=== PATIENT | female | born 1995 | race Caucasian/White ===

== ENCOUNTER 2024-12-30 07:59 | Emergency (ER) | payer BC, SELFPAY ==
[2024-12-30 08:12] VITALS: BP 132/67; PULSE 78; RESP 16; TEMP 37; O2SAT 98; BMI 31.6
--- OUTSIDE RECORDS SUMMARY | 2024-12-30 08:38 | XMS_ITS | Encounter Summary ---
Author Organization [facility] Address [address] [facility] [address] [place] [address] Phone Care Team Providers Care Reading Coach Name Role Phone Nataliya Cano MD Unavailable [phone] Jany Valdez MD Primary Care Provid er Lorene Gomes MD Primary Care Provider [phone] Lorene Gomes MD Unavailable [phone] Lorene Gomes MD Unavailable [phone] Reason for Visit * Reason Onset Date Comments referral 03/11/2022 Encounter Details Date Type Department Care Team (Late st Contact Info) Description 03/11/2022 Telephone [facility] Medicine [address] [place] [address] Jany Valdez MD [address] [address] [email or web address] referral Social History Tobacco Use Types Packs/Day Years Used Date Smoking Tobacco: Never Smokeless Tobacco: Never Alcohol Use Standard Drinks/Week Comments Yes 2 (1 standard drink = 0.6 oz pur e alcohol) beer or wine twice a week. Comments Unknown Sex and Gender Information Value Date Recorded Sex Assigned at Female 06/08/2019 9:17 PM EST Legal Sex Female 11:41 AM EDT Gender Identity Genderqueer/Queer 06/07/2023 10: 13 AM EST Sexual Orientation Pansexual 05/20/2020 2: 04 PM EST Occupation Industry Job Start Date Job End Date student Not on file Not on file Not on file [email or web address] Not on file Not on file Not on file documented as of this encounter Progress Notes * Jany Valdez MD - 03/12/2022 6:09 PM EDT Cannot sign referral for problem I have not evaluated patient I have not evaluated * Brie Mehta MA - 03/12/2022 2:33 PM EDT Pended. * Leana Mar - 03/11/2022 3:47 PM EDT Referral Request 1. Name of the office where the patient has been seen/requests to be seen: [facility] 2. Reason for referral/specialist appointment and the diagnosis code: lower back pain 2A. Have you seen this provider before for this same problem? YES/NO: no 2B. If this is a new problem, is your PCP aware of your symptoms? YES/NO: no 3. Date of appointment(s):02/22/22 4. Name of specialist provider: Linda Mosquera 5. NPI number to enter for referral authorization (enter n/a if not available): [id number] 6. Number of visits requested for referral: 20 7. Fax number of specialist office to send referral authorization: [phone] documented in this encounter Plan of Treatment Upcoming Encounters Date Type Department Care Team (Late st Contact Info) Description 01/11/2025 3:10 PM EDT Office Visit [facility] [address] [place] [address] [place] [phone] Shelby Ward MD [address] [facility], [address] [place] [address] 04/23/2026 1:40 PM EST Office Visit [facility] [address] [place] [address] Lorene Gomes MD [address] [facility] [address] [place] [address] [email or web address] documented as of this encounter Visit Diagnoses Not on filedocumented in this encounter Additional Health Concerns Infection Onset Date Last Indicated Resolved Time COVID-19 01/03/2023 01/03/2023 01/24/2023 1:23 AM EDT CoV-Risk Comment:Per Ambulatory Triage Form 01/05/2023 01/05/202301/05 11:40 AM EDT Assessment Noted Time PHQ-2 Depression Total Score: 0 09/06/19 10:30 AM EDT documented as of this encounter Care Teams Reading Coach Relationship Specialty Start Date End Date Jany Valdez MD 22 [facility] [address] [place] [address] [email or web address] PCP - General Family Medicine 10/23/21 08/03/22 Lorene Gomes MD [address] [place] [address] [address] [place] [address] PCP - General Family Medicine 08/04/22 Nataliya Cano MD [address] [facility] [place] [address] Insurance Assigned Provider Family Medicine 03/03/19 Lorene Gomes MD [address] [address] Insurance Assigned Provider 09/13/22 Lorene Gomes MD [address] [address] Insurance Assigned Provider 08/15/23 documented as of this encounter Additional Source Comments The information contained in this document represents components of the legal health record. It is not the complete legal health record.[facility]
--- NOTE | 2024-12-30 09:14 | ED_ITS ---
HPI - Wound/Laceration General Chief Complaint: Wound/Laceration Stated Complaint: R Thumb Lac Time Seen by Provider: 12/30/24 08:09 Source: patient, RN notes reviewed and old records reviewed Mode of arrival: ambulatory Limitations: no limitations History of Present Illness ED Provider: Ashley Parish PA-C HPI narrative: Patient reports to the emergency department today for evaluation of laceration to the right thumb. There using a mandoline last night to cut food and accidentally sliced into their hand. Patient is left-hand dominant there were holding the food of the right hand. They deny any prior trauma to this area in the past no paresthesias or weakness. As partner is a EMT they tried to achieve hemostasis by applying a dry gauze to the left it in place until today and now it is stuck. Patient does not not have any clotting disorder and is not on any anticoagulation. They can not recall their last tetanus shot. Related Data Allergies Allergy/AdvReac Type Severity Reaction Status Date / Time No Known Allergies Allergy Verified 12/30/24 08:15 Review of Systems Review of Systems: Yes all other systems are reviewed and are negative PMFSH Past Medical History Attestation statement: The following information was validated with the patient. Source: old records reviewed and nursing notes reviewed Social History Social History Advance Directives: No Advance Directives Information Provided: Yes Do you have a plan to hurt others: No Plan Physical Exam Exam: Exam: General: Appears in no acute distress, appears well nourished body habitus is obese, appears stated age. No septic or ill-appearing. Vitals reviewed normal, PMH/Social and Surgical hx reviewed including allergies and current medications. - reviewed for prior visits here. Head: Normocephalic, no obvious trauma or skin lesions noted. Eyes: EOMI ENMT: moist oral mucosa Neck: trachea midline Cardiovascular: peripheral perfusion normal, Regular heart rate Respiratory: no respiratory distress Abdomen: nondistended Extremities: warm and moving without difficulty - right thumb with a skin avulsion over the lateral radial aspect with no visible subcutaneous tissue, areas of proximally 1 cm in size no visible arterial bleed or tendon rupture, approximate 1 6 of the adjacent nailbed with disruption Psych: Cooperative Neuro: Alert and oriented. Vital Signs: Vital Signs: Last Vital Signs Temp 98.6 F 12/30/24 09:47 Pulse 78 12/30/24 09:47 Resp 16 12/30/24 09:47 BP 132/67 12/30/24 09:47 Pulse Ox 98 12/30/24 09:47 O2 Del Method Room Air 12/30/24 09:47 BMI result Body Mass Index 31.6 Medications Administered Discontinued Medications Generic Name Dose Route Start Last Admin Trade Name Freq PRN Reason Stop Dose Admin Acetaminophen 975 mg 12/30/24 09:14 12/30/24 09:21 Acetaminophen 325 Mg Tablet PO 12/30/24 09:15 975 mg ONCE ONE Administration Diphtheria/Tetanus/Acell Pertussis 0.5 ml 12/30/24 09:14 12/30/24 09:21 Diphth,Pertus(Acell),Tet Adult 0.5 Ml Syringe IM 12/30/24 09:15 0.5 ml .ONCE ONE Administration Medical Decision Making Medical Decision Making MDM Narrative: Patient presents to ED today for evaluation of laceration to the right thumb. LEONARDO is sharp object. This is not work related. Upon arrival to ED, patient is afebrile with stable vitals and well-appearing.? History and physical as stated above.?? Patient's tetanus was given. No evidence of foreign body or bony tenderness, x- rays not indicated. No evidence of arterial bleed or tendon rupture. No evidence of neurovascular compromise. ROM intact. Wound was cleansed and explored. Discussed wound repair options before proceeding with care. Wound was closed with skin adhesive while turning a tourniquet to the base of the thumb, see procedure note.? Status post procedure neurovascularly intact Discussed wound care with the patient and partner who is present.? The wound was not contaminated PO antibiotics were not prescribed. Recommend follow-up either with her PCP to have wound rechecked- time frame in plan.? I thoroughly discussed if concerned for any signs of infection to follow up right away.? Discussed symptomatic treatment with the patient and partner.? Discussed other return prec autions as detailed in plan.? Patient and partner verbalized understanding of the above plan and is in agreement with the above plan.? The patient was discharged home in stable condition with return precautions. Differential Diagnosis Differential Diagnoses: The differential diagnosis associated with the presentation includes Laceration, neurovascular compromise, arterial bleed, tendon rupture, crush injury Admission/Observation Consideration of admission/observation: Escalation of care including admission/observation considered Patient would have been admitted to the hospital had her work up had any findings where hospital admission was appropriate and her clinical presentation warranted hospital admission. Tests considered The following testing was considered but not selected: Would have considered x-ray of the hand if this was a crush injury but given the wound was superficial this was deferred no concern for foreign bodies Prescription Management I considered prescription management with: Antibiotic Wound was not contaminated Procedures Laceration Laceration 1: Site: hand (thumb) Side (If applicable): right Size (cm): 1.0 Description: other (skin avulsion approx 0.2cm of quarter of nail/nailbed) Depth: simple, single layer Local Anesthetic: lidocaine 1% Amount of anesthesia used (mL): 1.5 Pre-repair: wound explored and irrigated extensively Skin layer closed with: other (dermabond) Discharge Plan Discharge Clinical Impression: Laceration of right thumb with damage to nail Patient Disposition: Home, Self-Care Additional Instructions: We have repaired your laceration with Dermabond.?? The glue will hold the edges of the skin together while it heals.?? The glue will wear off in about 5-7 days.?? Do not put lotion or antibiotic ointment on the glue as it will break it down prematurely.?? You can wash the area normally after 6 hours; however, do not have any prolonged soaks in water.?? As with any laceration, there may be scarring.? The full extent of the scar may not be determined for 6 months to a year.? Minimizing sun exposure will help to reduce scarring. Return immediately or call your doctor for signs of infection that include the following:? Red streaks from wound or surrounding the wound, pus draining from the wound, increased pain, or fever > 100.4 degrees F. Referrals: Lorene Gomes MD [Primary Care Provider, Family Practice] Referral Note: wound recheck 2-3 days Interventions: ED Discharge Assessment Last Done: 12/30/24 09:47 Discharge Date/Time: 12/30/24 09:50 Print Language: Ecuadorean
[2024-12-30] MEDS: Diphth,Pertus(ACell),Tet Adult 0.5 ML SYRINGE IM (09:21)
[2024-12-30 09:47] VITALS: BP 132/67; PULSE 78; RESP 16; TEMP 37; O2SAT 98
== END 2024-12-30 09:50 | disposition home or self-care (01) ==
PROVIDERS: Emergency Provider Emergency Medicine; PCP Family Medicine
DX: S61.011A Laceration without foreign body of right thumb without damage to nail, initial encounter (principal); M79.641 Pain in right hand; W26.9XXA Contact with unspecified sharp object(s), initial encounter; Y93.G3 Activity, cooking and baking; Y92.000 Kitchen of unspecified non-institutional (private) residence as the place of occurrence of the external cause; Y99.8 Other external cause status; Z23 Encounter for immunization
CPT/HCPCS: 12041; 90471; 90715; 99283; 99284